=== PATIENT | male | born 1975 | race African-American/Black ===

== ENCOUNTER 2022-05-07 08:09 | Observation (INO) ==
[2022-05-07] MEDS ORDERED: INFLUENZA VIRUS VACCINE 0.5 ML SYRINGE IM ONE (12:01)
[2022-05-07] MEDS ORDERED: ONDANSETRON 4 MG/2 ML VIAL IV PRN ×2 (12:58→15:20)
[2022-05-07] MEDS ORDERED: ACETAMINOPHEN 325 MG TABLET PO PRN (12:58)
[2022-05-07] MEDS ORDERED: BUPIVACAINE MPF 0.25% 10 ML VIAL ONE (13:56)
[2022-05-07] MEDS ORDERED: TISSUE ADHESIVE 1 EACH APPLICATOR TOP ONE (13:56)
[2022-05-07] MEDS ORDERED: LIDOCAINE 2%/EPI 20 ML VIAL ONE (13:56)
[2022-05-07] MEDS ORDERED: MIDAZOLAM 2 MG/2 ML VIAL ONE (14:00)
[2022-05-07] MEDS ORDERED: fentaNYL 100 MCG/2 ML VIAL ONE ×2 (14:15→15:01)
[2022-05-07] MEDS ORDERED: LACTATED RINGERS 1,000 ML IV ONE ×2 (14:20→14:50)
[2022-05-07] MEDS ORDERED: SEVOFLURANE 1 UNIT/15 MINUTE INH ONE (14:20)
[2022-05-07] MEDS ORDERED: LIDOCAINE 2% 5 ML VIAL ONE (14:20)
[2022-05-07] MEDS ORDERED: propofoL 200 MG/20 ML VIAL IV ONE (14:20)
[2022-05-07] MEDS ORDERED: ONDANSETRON 4 MG/2 ML VIAL ONE (14:20)
[2022-05-07] MEDS ORDERED: DEXAMETHASONE 4 MG/1 ML VIAL ONE (14:21)
[2022-05-07] MEDS ORDERED: SUGAMMADEX 200 MG/2 ML VIAL IV ONE (14:29)
[2022-05-07] MEDS ORDERED: KETOROLAC 30 MG/1 ML VIAL ONE (14:31)
[2022-05-07] MEDS ORDERED: hydrALAZINE 20 MG/1 ML VIAL ONE (14:54)
[2022-05-07] MEDS ORDERED: HYDROmorphone 1 MG/1 ML SYRINGE ONE (15:21)
[2022-05-07] MEDS: HYDROmorphone 1 MG/1 ML SYRINGE IV PRN ×2 (15:22→15:30)
[2022-05-07] MEDS: LACTATED RINGERS 1,000 ML IV SCH ×2 (16:13→21:19)
[2022-05-07] MEDS: PIPERACILLIN/TAZOBACTAM 3,375 MG in SODIUM CHLORIDE 0.9% 100 ML IV SCH ×2 (16:13→20:57)
[2022-05-08] MEDS: LACTATED RINGERS 1,000 ML IV SCH ×3 (02:54→14:29)
[2022-05-08] MEDS: PIPERACILLIN/TAZOBACTAM 3,375 MG in SODIUM CHLORIDE 0.9% 100 ML IV SCH ×2 (04:52→14:29)
[2022-05-08 05:59] LABS: Hematocrit 34.7 VOL% (42.0-52.0); Hemoglobin 11.6 GM/DL (14.0-18.0); Immature Granulocytes % 0.7 %; Immature Granulocytes Absolute 0.07 #; Lymphocytes % 10.7 % (21.2-54.2); Mean Corpuscular HGB Conc 33.4 GM/DL (32-36); Mean Corpuscular Volume 89.7 FL (87-102); Mean Platelet Volume 10.5 FL (9.6-12.0); Monocytes # 0.8 10*3/uL (0.11-0.8); Monocytes % 8.4 % (1.7-12.7); Neutrophils % 80.2 % (38.7-73.9); Platelet Count 219 T/CUMM (130-400); Red Blood Count 3.87 MC/CUMM (3.8-5.5); Red Cell Distribution Width 14.4 % (9.3-17.3); White Blood Count 9.7 T/CUMM (4-12)
[2022-05-08 06:26] LABS: Calcium 9.3 MG/DL (8.5-10.1); Osmolality,Calculated 279.5 MOS/KG (273-304); Potassium 4.4 MMOL/L (3.5-5.1)
[2022-05-08] MEDS ORDERED: PANTOPRAZOLE 40 MG TABLET PO SCH (09:00)
[2022-05-08 11:56] VITALS: BP 120/71
== END 2022-05-08 15:53 | disposition home or self-care (01) ==
LOC: N.3E 11:00 → INTOOBSV 11:00
PROVIDERS: ADMIT Student in an Organized Health Care Education/Training Program; ATTEND Student in an Organized Health Care Education/Training Program